=== PATIENT | female | born 1985 | race Caucasian/White ===

== ENCOUNTER 2018-05-24 07:16 | Emergency (ER) | payer OTHER, MEDICAID ==
[2018-05-24] MEDS ORDERED: KETOROLAC TROMETHAMINE 60 MG/2 ML VIAL ONE (07:48)
== END 2018-05-24 08:24 | disposition home or self-care (01) ==
LOC: EDH 07:16
DX: S60.221A Contusion of right hand, initial encounter (principal); E07.9 Disorder of thyroid, unspecified; Z88.0 Allergy status to penicillin; X58.XXXA Exposure to other specified factors, initial encounter; Y93.89 Activity, other specified; Y92.89 Other specified places as the place of occurrence of the external cause; Y99.8 Other external cause status
CPT/HCPCS: 73110; 73130; 96372; 99284; J1885